=== PATIENT | female | born 1950 | race Caucasian/White ===

== ENCOUNTER 2017-05-23 17:58 | Emergency (ER) | payer MEDICARE, OTHER ==
[2017-05-23 18:32] LABS: ADD MAN DIFF? NO
[2017-05-23 18:36] LABS: BASO # 0.1 x10^3/uL (0.0-0.2); BASO % 1 % (0-3); EOS % 4 % (0-3); HEMATOCRIT 43.2 % (36.0-47.0); HEMOGLOBIN 14.1 g/dL (12.0-15.5); LYMPH # 2.4 x10^3/uL (1.0-4.8); LYMPH % 43 % (24-48); MEAN CORPUSCULAR HEMOGLOBIN 33 pg (25-35); MEAN CORPUSCULAR HGB CONC 33 g/dL (31-37); MEAN CORPUSCULAR VOLUME 100 fL (79-100); MONO % 9 % (0-9); NEUT % 44 % (31-73); PLATELET COUNT 218 x10^3/uL (140-400); RED BLOOD COUNT 4.32 x10^6/uL (3.50-5.40); RED CELL DISTRIBUTION WIDTH 13.7 % (11.5-14.5); WHITE BLOOD COUNT 5.7 x10^3/uL (4.0-11.0)
[2017-05-23 18:38] LABS: BILIRUBIN,URINE NEGATIVE (NEG); GLUCOSE,URINE NEGATIVE (NEG); NITRITE,URINE NEGATIVE (NEG); PROTEIN,URINE NEGATIVE (NEG-TRACE); UROBILINOGEN,URINE 0.2 mg/dL (0.2 mg/dL)
[2017-05-23 18:45] LABS: ANION GAP 10 (6-14); BLOOD UREA NITROGEN 13 mg/dL (7-20); CALCIUM 8.6 mg/dL (8.5-10.1); CARBON DIOXIDE 27 mmol/L (21-32); CHLORIDE 104 mmol/L (98-107); CREATININE 0.9 mg/dL (0.6-1.0); GFR 62.5; GLUCOSE 104 mg/dL (70-99); POTASSIUM 3.4 mmol/L (3.5-5.1); SODIUM 141 mmol/L (136-145)
[2017-05-23 18:48] LABS: BACTERIA,URINE 0 /HPF (0-FEW); RBC,URINE >40 /HPF (0-2); SQUAMOUS EPITHELIAL CELL,UR MOD /LPF
[2017-05-23 18:51] LABS: ALBUMIN 3.8 g/dL (3.4-5.0); ALK PHOS 120 U/L (46-116); ALT (SGPT) 33 U/L (14-59); AST (SGOT) 25 U/L (15-37); DIRECT BILIRUBIN 0.1 mg/dL (0.0-0.2); TOTAL BILIRUBIN 0.3 mg/dL (0.2-1.0)
[2017-05-23 18:53] LABS: LACTIC ACID 1.2 mmol/L (0.4-2.0); TROPONINI < 0.017 ng/mL (0.000-0.055)
[2017-05-23] MEDS: ONDANSETRON PF 4 MG/2 ML VIAL. IV (19:16)
[2017-05-23] MEDS: HYDROmorphone 2 MG/ML VIAL IV/SQ (19:16)
[2017-05-23] MEDS: IV NORMAL SALINE 500ML BAG 500 ML IV (19:23)
== END 2017-05-23 19:50 | disposition home or self-care (01) ==
LOC: ER 17:58
DX: N20.0 Calculus of kidney (principal); E78.00 Pure hypercholesterolemia, unspecified; I10 Essential (primary) hypertension; K21.9 Gastro-esophageal reflux disease without esophagitis; M79.7 Fibromyalgia; G43.909 Migraine, unspecified, not intractable, without status migrainosus; Z98.890 Other specified postprocedural states; Z87.19 Personal history of other diseases of the digestive system; Z90.49 Acquired absence of other specified parts of digestive tract
CPT/HCPCS: 36415; 74176; 80048; 80076; 81001; 83605; 83690; 84484; 85025; 87086; 93005; 96374; 96375; 99285-25; J1170; J2405; J7040

== ENCOUNTER 2021-09-08 20:02 | Inpatient (IN) | payer BC, MEDICARE ==
[~2021-09-08] VITALS: Ht 152.4 cm; Wt 48.0 kg
[~2021-09-08 20:02] MED LIST: HYDR-2761 PO; ONDA4TAB10 SL
[2021-09-08 21:14] LABS: BASO # 0.1 x10^3/uL (0.0-0.2); BASO % 1 % (0-3); EOS # 0.1 x10^3/uL (0.0-0.7); EOS % 2 % (0-3); HEMOGLOBIN 13.3 g/dL (12.0-15.5); LYMPH # 2.2 x10^3/uL (1.0-4.8); LYMPH % 36 % (24-48); MEAN CORPUSCULAR HEMOGLOBIN 33 pg (25-35); MEAN CORPUSCULAR HGB CONC 34 g/dL (31-37); MEAN CORPUSCULAR VOLUME 96 fL (79-100); MONO # 0.5 x10^3/uL (0.0-1.1); MONO % 8 % (0-9); NEUT # 3.3 x10^3/uL (1.8-7.7); NEUT % 53 % (31-73); PLATELET COUNT 192 x10^3/uL (140-400); RED BLOOD COUNT 4.07 x10^6/uL (3.50-5.40); RED CELL DISTRIBUTION WIDTH 13.6 % (11.5-14.5); WHITE BLOOD COUNT 6.2 x10^3/uL (4.0-11.0)
[2021-09-08] MEDS ORDERED: DEXAMETHASONE SOD PHOS 20 MG/5 ML VIAL. IV ONE (21:15)
[2021-09-08] MEDS ORDERED: hydrALAZINE 20 MG/ML VIAL. IVP ONE (21:15)
[2021-09-08] MEDS ORDERED: IOHEXOL 300 MG/ML 100ML VIAL. IV ONE (21:15)
[2021-09-08 21:24] LABS: CALCIUM 9.2 mg/dL (8.5-10.1); CREATININE 0.9 mg/dL (0.6-1.0); GFR 61.7; POTASSIUM 3.4 mmol/L (3.5-5.1); PROTHROMBIN TIME PATIENT 12.9 SEC (11.7-14.0)
[2021-09-08 21:30] LABS: ALBUMIN 3.8 g/dL (3.4-5.0); ALBUMIN/GLOBULIN RATIO 1.1 (1.0-1.7); MAGNESIUM 2.4 mg/dL (1.8-2.4); TOTAL BILIRUBIN 0.3 mg/dL (0.2-1.0); TOTAL PROTEIN 7.2 g/dL (6.4-8.2)
[2021-09-08] MEDS ORDERED: CONTRAST GIVEN. MC PRN (21:30)
[2021-09-08 21:53] LABS: BACTERIA,URINE 0 /HPF (0-FEW); BARBITURATES POS (NEG); BENZODIAZEPINES NEG (NEG); CANNABINOIDS NEG (NEG); COCAINE NEG (NEG); METHADONE NEG (NEG); OPIATES NEG (NEG); PHENCYCLIDINE NEG (NEG); RBC,URINE 0 /HPF (0-2)
[2021-09-08 21:54] LABS: AMPHETAMINE/METHAMPHETAMINE NEG (NEG); WBC,URINE OCC /HPF (0-4)
--- NOTE | 2021-09-08 22:23 | RAD ---
PQRS Compliance Statement: One or more of the following individualized dose reduction techniques were utilized for this examinat ion: 1. Automated exposure control 2. Adjustment of the mA and/or kV according to patient size 3. Use of iterative reconstruction technique CT HEAD WITHOUT CONTRAST History: Reason: headache / Spl. Instructions: / History: Comparison: None. Technique: Axial images are obtained of the head from the skull base through the vertex without IV co ntrast. Findings: No mass-effect, midline shift, extra-axial fluid collection, hemorrhage, or obvious acute infarction is identified. Basilar cisterns are patent. The ventricles and sulci are prominent, consistent with generalized cerebral atrophy. There is perive ntricular white matter hypoattenuation. This is a nonspecific finding but is commonly due to chronic small vessel ischemic disease. Bone windows demonstrate no acute calvarial abnormality. The left sphenoid sinus is completely opacif ied. The other visualized paranasal sinuses are clear. Mastoid air cells are well aerated. IMPRESSION: 1. No acute intracranial abnormality. 2. Generalized cerebral atrophy and periventricular white matter changes probably due to chronic sma ll vessel ischemic disease. Electronically signed by: Eric Hook MD (09/08/2021 10:21 PM) [facility]
--- NOTE | 2021-09-08 22:43 | RAD ---
PQRS Compliance Statement: One or more of the following individualized dose reduction techniques were utilized for this examinat ion: 1. Automated exposure control 2. Adjustment of the mA and/or kV according to patient size 3. Use of iterative reconstruction technique CTA HEAD AND NECK W/WO CONTRAST Clinical Indication: Reason: headache; Comparison: CT head without contrast, earlier same day. Technique: Helical CT imaging from inferior to the aortic arch to the skull vertex is performed after 75 cc of Omnipaque [address] angiogram protocol. 3-D MIP reconstructions of the cervi emanuel carotid arteries and [place] of [place] are performed. PQRS Compliance Statement - Stenosis calculations for CT, MR and conventional angiography are based u rubio measurement of the distal ICA diameter in accordance with the NASCET methodology. Stenosis calcu lations for carotid ultrasound studies are derived from validated velocity criteria which are known t o correlate with the NASCET methodology. Findings: Aortic arch branches are patent. Common carotid arteries are patent. The carotid bifurcations are pat ent. The cervical internal carotid arteries are patent. No evidence of dissection. The cervical verte bral arteries are patent. The left vertebral artery is dominant. The posterior circulation is intact. There is persistent origin of the left posterior cerebral artery. The distal internal carotid arteries are patent. The left A1 segment is very hypoplastic or aplastic. There is patent anterior co mmunicating artery. There is normal caliber more distal anterior cerebral arteries. The middle cerebr al arteries are patent. No intracranial aneurysm or significant stenosis is identified. There is no contrast opacification of the right transverse and sigmoid sinus. No abnormal enhancement in the brain parenchyma. The thyroid is symmetric. No cervical adenopathy is seen. There are a few g roundglass nodules in the left upper lobe that may be infectious/inflammatory. There is mild grade 1 anterolisthesis of C4 on C5 and C5 on C6 and C7 on T1. There are mild degenerative changes of the cer vical spine. IMPRESSION: 1. There is no large vessel arterial occlusion. 2. There is no significant stenosis of the cervical carotid or vertebral arteries. 3. There is no contrast opacification of right transverse and sigmoid sinus. Cannot exclude sinus th rombosis. Alternatively finding may be due to hypoplasia and contrast phase. Consider CT venogram for further evaluation. 4. There are a few groundglass nodules in the left upper lobe that are probably infectious/inflammat ory. Electronically signed by: Eric Hook MD (09/08/2021 10:41 PM) [facility]
[2021-09-09] MEDS ORDERED: MORPHINE SULFATE 4 MG/ML INJ. IVP ONE
[2021-09-09] MEDS ORDERED: ONDANSETRON PF 4 MG/2 ML VIAL. ONE (00:25)
[2021-09-09] MEDS ORDERED: ONDANSETRON PF 4 MG/2 ML VIAL. IVP ONE (00:30)
--- NOTE | 2021-09-09 00:58 | PHYS DOC ---
Past Medical History Past Medical History: Diverticulitis, Fibromyalgia, GERD, High Cholesterol, Hypertension, Migraines Additional Past Medical Histor: TMJ Past Surgical History: Hysterectomy Additional Past Surgical Histo: L SHOULDER- BONE SPUR REMOVED, SKIN CANCER REMOVED, WRIST Smoking Status: Never Smoker Alcohol Use: None Drug Use: None General Adult EDM: Chief Complaint: HEADACHE HPI: HPI: Patient is a 71 year old female with a history of migraine headaches, hypertension, fibromyalgia, high cholesterol, TMJ, presenting to the ED today complaining of 10 out of 10 generalized headache, chest pain, jaw pain, teeth pain, roof of the mouth pain, symptoms have been going on for 1 week. Patient states symptoms got worse today. Patient denies any nausea, vomiting. She states this does not feel like her normal migraines or TMJ. She states she is currently on sumatriptan, Soma, butalbital with no relief. Denies any vision changes, denies any weakness. Denies anything exacerbating or relieving the pain. She states the headache began gradually and has gotten worse. Denies any thunderclap headache. Review of Systems: Review of Systems: Constitutional: Denies fever or chills. [] Eyes: Denies change in visual acuity. [] HENT: Reports jaw pain, face pain, teeth pain, roof of the mouth pain, denies nasal congestion or sore throat. [] Respiratory: Denies cough or shortness of breath. [] Cardiovascular: Denies chest pain or edema. [] GI: Denies abdominal pain, nausea, vomiting, bloody stools or diarrhea. [] : Denies dysuria. [] Musculoskeletal: Denies back pain or joint pain. [] Integument: Denies rash. [] Neurologic: Reports a headache, denies focal weakness or sensory changes. [] Psychiatric: Denies depression or anxiety. [] Heart Score: C/O Chest Pain: N/A Risk Factors: Risk Factors: DM, Current or recent (<one month) smoker, HTN, HLP, family history of CAD, obesity. Risk Scores: Score 0 - 3: 2.5% MACE over next 6 weeks - Discharge Home Score 4 - 6: 20.3% MACE over next 6 weeks - Admit for Clinical Observation Score 7 - 10: 72.7% MACE over next 6 weeks - Early Invasive Strategies Current Medications: Current Medications Medications (Trade) Dose Ordered Sig/Keila Start Time Stop Time Status Last Admin Dose Admin Dexamethasone Sodium Phosphate (Decadron) 10 mg 1X ONCE 09/08/21 21:15 09/08/21 21:16 DC 09/08/21 21:41 10 MG Enoxaparin Sodium (Lovenox 60mg Syringe) 60 mg ONCE ONCE 09/09/21 00:15 09/09/21 00:16 DC 09/09/21 00:28 60 MG Enoxaparin Sodium (Lovenox Per Pharmacy Treatment Dosing) 1 each 1X STAT 09/08/21 23:58 09/09/21 00:07 DC Hydralazine HCl (Apresoline Inj) 10 mg 1X ONCE 09/08/21 21:15 09/08/21 21:16 DC 09/08/21 21:44 10 MG Info (CONTRAST GIVEN -- Rx MONITORING) 1 each PRN DAILY PRN 09/08/21 21:30 09/10/21 21:29 Iohexol (Omnipaque 300 Mg/ml) 75 ml 1X ONCE 09/08/21 21:15 09/08/21 21:18 DC 09/08/21 22:15 75 ML Morphine Sulfate (Morphine Sulfate) 4 mg 1X ONCE 09/09/21 00:00 09/09/21 00:04 DC 09/09/21 00:18 4 MG Ondansetron HCl (Zofran) 4 mg STK-MED ONCE 09/09/21 00:25 09/09/21 00:25 DC Allergies: Allergies: Allergies Coded Allergies Type Severity Reaction Last Updated Verified No Known Drug Allergies 05/23/17 No Physical Exam: PE: Constitutional: Well developed, well nourished, no acute distress, non-toxic appearance. [] HENT: Normocephalic, atraumatic, bilateral external ears normal, oropharynx moist, no oral exudates, nose normal. [] Eyes: No papilledema noted on physical exam PERRLA, EOMI, conjunctiva normal, no discharge. [] Neck: Normal range of motion, no tenderness, supple, no stridor. [] Cardiovascular:Heart rate regular rhythm, no murmur [] Lungs & Thorax: Bilateral breath sounds clear to auscultation [] Abdomen: Bowel sounds normal, soft, no tenderness, no masses, no pulsatile masses. [] Skin: Warm, dry, no erythema, no rash. [] Back: No tenderness, no CVA tenderness. [] Extremities: No tenderness, no cyanosis, no clubbing, ROM intact, no edema. [] Neurologic: Alert and oriented X 3, normal motor function, normal sensory function, no focal deficits noted. Cranial nerves II through XII intact Psychologic: Affect normal, judgement normal, mood normal. [] Current Patient Data: Labs: Laboratory Tests Test 09/08/21 21:05 09/08/21 21:38 White Blood Count 6.2 x10^3/uL (4.0-11.0) Red Blood Count 4.07 x10^6/uL (3.50-5.40) Hemoglobin 13.3 g/dL (12.0-15.5) Hematocrit 39.0 % (36.0-47.0) Mean Corpuscular Volume 96 fL (79-100) Mean Corpuscular Hemoglobin 33 pg (25-35) Mean Corpuscular Hemoglobin Concent 34 g/dL (31-37) Red Cell Distribution Width 13.6 % (11.5-14.5) Platelet Count 192 x10^3/uL (140-400) Neutrophils (%) (Auto) 53 % (31-73) Lymphocytes (%) (Auto) 36 % (24-48) Monocytes (%) (Auto) 8 % (0-9) Eosinophils (%) (Auto) 2 % (0-3) Basophils (%) (Auto) 1 % (0-3) Neutrophils # (Auto) 3.3 x10^3/uL (1.8-7.7) Lymphocytes # (Auto) 2.2 x10^3/uL (1.0-4.8) Monocytes # (Auto) 0.5 x10^3/uL (0.0-1.1) Eosinophils # (Auto) 0.1 x10^3/uL (0.0-0.7) Basophils # (Auto) 0.1 x10^3/uL (0.0-0.2) Erythrocyte Sedimentation Rate 21 (0-25) Prothrombin Time 12.9 SEC (11.7-14.0) Prothrombin Time INR 1.0 (0.8-1.1) Activated Partial Thromboplast Time 32 SEC (24-38) Sodium Level 142 mmol/L (136-145) Potassium Level 3.4 mmol/L (3.5-5.1) L Chloride Level 107 mmol/L (98-107) Carbon Dioxide Level 25 mmol/L (21-32) Anion Gap 10 (6-14) Blood Urea Nitrogen 14 mg/dL (7-20) Creatinine 0.9 mg/dL (0.6-1.0) Estimated GFR (Cockcroft-Gault) 61.7 BUN/Creatinine Ratio 16 (6-20) Glucose Level 97 mg/dL (70-99) Calcium Level 9.2 mg/dL (8.5-10.1) Magnesium Level 2.4 mg/dL (1.8-2.4) Total Bilirubin 0.3 mg/dL (0.2-1.0) Aspartate Amino Transferase (AST) 21 U/L (15-37) Alanine Aminotransferase (ALT) 26 U/L (14-59) Alkaline Phosphatase 145 U/L (46-116) H Troponin I High Sensitivity 7 ng/L (4-50) RZ-Pjp-Q-Type Natriuretic Peptide 37 pg/mL (0-124) Total Protein 7.2 g/dL (6.4-8.2) Albumin 3.8 g/dL (3.4-5.0) Albumin/Globulin Ratio 1.1 (1.0-1.7) Urine Collection Type Unknown Urine Color (Auto) Colorless Urine Turbidity Clear Urine pH (Auto) 6.5 (<5.0-8.0) Urine Specific [place] 1.008 (1.000-1.030) Urine Protein (Auto) Negative mg/dL (Negative) Urine Glucose (Auto)(UA) Negative mg/dL (Negative) Urine Ketones (Auto) Negative mg/dL (Negative) Urine Blood (Auto) Negative (Negative) Urine Nitrite Negative (Negative) Urine Bilirubin (Auto) Negative (Negative) Urine Urobilinogen (Auto) Normal mg/dL (Normal) Urine Leukocyte Esterase (Auto) Negative (Negative) Urine RBC 0 /HPF (0-2) Urine WBC Occ /HPF (0-4) Urine Squamous Epithelial Cells Occ /LPF Urine Bacteria 0 /HPF (0-FEW) Urine Opiates Screen Neg (NEG) Urine Methadone Screen Neg (NEG) Urine Barbiturates Pos (NEG) Urine Phencyclidine Screen Neg (NEG) Urine Amphetamine/Methamphetamine Neg (NEG) Urine Benzodiazepines Screen Neg (NEG) Urine Cocaine Screen Neg (NEG) Urine Cannabinoids Screen Neg (NEG) Urine Ethyl Alcohol Neg (NEG) Laboratory Tests 09/08/21 21:05 Laboratory Tests 09/08/21 21:05 Vital Signs: Vital Signs Date Time Temp Pulse Resp B/P (MAP) Pulse Ox O2 Delivery O2 Flow Rate FiO2 09/09/21 00:18 18 97 Room Air 09/08/21 23:47 106 09/08/21 21:44 173/99 09/08/21 20:08 98.1 98.1 EKG: EKG: [] Radiology/Procedures: Radiology/Procedures: []PROCEDURE: CT ANGIOGRAPHY HEAD AND NECK PQRS Compliance Statement: One or more of the following individualized dose reduction techniques were utilized for this examination: 1. Automated exposure control 2. Adjustment of the mA and/or kV according to patient size 3. Use of iterative reconstruction technique CTA HEAD AND NECK W/WO CONTRAST Clinical Indication: Reason: headache; Comparison: CT head without contrast, earlier same day. Technique: Helical CT imaging from inferior to the aortic arch to the skull vertex is performed after 75 cc of Omnipaque [address] angiogram protocol. 3-D MIP reconstructions of the cervical carotid arteries and [place] of [place] are performed. PQRS Compliance Statement - Stenosis calculations for CT, MR and conventional angiography are based upon measurement of the distal ICA diameter in accordance with the NASCET methodology. Stenosis calculations for carotid ultrasound studies are derived from validated velocity criteria which are known to correlate with the NASCET methodology. Findings: Aortic arch branches are patent. Common carotid arteries are patent. The carotid bifurcations are patent. The cervical internal carotid arteries are patent. No evidence of dissection. The cervical vertebral arteries are patent. The left vertebral artery is dominant. The posterior circulation is intact. There is persistent origin of the left posterior cerebral artery. The distal internal carotid arteries are patent. The left A1 segment is very hypoplastic or aplastic. There is patent anterior communicating artery. There is normal caliber more distal anterior cerebral arteries. The middle cerebral arteries are patent. No intracranial aneurysm or significant stenosis is identified. There is no contrast opacification of the right transverse and sigmoid sinus. No abnormal enhancement in the brain parenchyma. The thyroid is symmetric. No cervical adenopathy is seen. There are a few groundglass nodules in the left upper lobe that may be infectious/inflammatory. There is mild grade 1 anterolisthesis of C4 on C5 and C5 on C6 and C7 on T1. There are mild d egenerative changes of the cervical spine. IMPRESSION: 1. There is no large vessel arterial occlusion. 2. There is no significant stenosis of the cervical carotid or vertebral arteries. 3. There is no contrast opacification of right transverse and sigmoid sinus. Cannot exclude sinus thrombosis. Alternatively finding may be due to hypoplasia and contrast phase. Consider CT venogram for further evaluation. 4. There are a few groundglass nodules in the left upper lobe that are probably infectious/inflammatory. Electronically signed by: Eric Hook MD (09/08/2021 10:41 PM) [facility] DICTATED and SIGNED BY: ERIC HOOK MD DATE: 09/08/212220 PROCEDURE: CT HEAD WO CONTRAST PQRS Compliance Statement: One or more of the following individualized dose reduction techniques were utilized for this examination: 1. Automated exposure control 2. Adjustment of the mA and/or kV according to patient size 3. Use of iterative reconstruction technique CT HEAD WITHOUT CONTRAST History: Reason: headache / Spl. Instructions: / History: Comparison: None. Technique: Axial images are obtained of the head from the skull base through the vertex without IV contrast. Findings: No mass-effect, midline shift, extra-axial fluid collection, hemorrhage, or obvious acute infarction is identified. Basilar cisterns are patent. The ventricles and sulci are prominent, consistent with generalized cerebral atrophy. There is periventricular white matter hypoattenuation. This is a nonspecific finding but is commonly due to chronic small vessel ischemic disease. Bone windows demonstrate no acute calvarial abnormality. The left sphenoid sinus is completely opacified. The other visualized paranasal sinuses are clear. Mastoid air cells are well aerated. IMPRESSION: 1. No acute intracranial abnormality. 2. Generalized cerebral atrophy and periventricular white matter changes probably due to chronic small vessel ischemic disease. Electronically signed by: Eric Hook MD (09/08/2021 10:21 PM) [facility] DICTATED and SIGNED BY: ERIC HOOK MD DATE: 09/08/212215 Course & Med Decision Making: Course & Med Decision Making Pertinent Labs and Imaging studies reviewed. (See chart for details) This a 71-year-old female patient presenting to the ED today complaining of 10 out of 10 General headache, chest pain, jaw pain, teeth pain, roof of the mouth pain, symptoms of been going on for 1 week and got worse today. Vitals on arrival to the ED temperature 98.1, heart rate 81, O2 sats 99% on room air, blood pressure 213/88. CBC CMP with no acute findings, cardiac work-up is negative. CT of head, CT head neck angio, no large vessel arterial occlusion. No significant stenosis of the cervical carotid or vertebral arteries. No contrast opacification of right transverse and sigmoid sinus. Cannot exclude sinus thrombosis. Alternatively finding may be due to hypoplasia and contrast phase. Consider CT venogram for further evaluation. There are a few groundglass nodules in the left upper lobe that are probably infectious/inflammatory. Spoke to Dr. Pierre. He had recommended patient to be discharged to home and follow-up with PCP for outpatient CT venogram. He also requested sed rate which was negative Unfortunately this patient's headache is not well controlled. She keeps asking for pain medicine and every time she gets a dose she states she wants something stronger. Patient herself is not comfortable going home, she states she would rather stay in the hospital and be safe to ensure this is not a true thrombus. Patient was admitted MRI/ MRV and rule out sinus thrombus can be done in AM Spoke to Dr. Quarles who accepted patient for admission. Case was discussed with Dr. Mancini who helped direct patient's care. He also recommended Lovenox which was given to patient Dragon Disclaimer: Rajinder Disclaimer: This electronic medical record was generated, in whole or in part, using a voice recognition dictation system. Departure Departure Impression: Primary Impression: Accelerated hypertension Additional Impressions: Intractable headache Qualified Codes: R51.9 - Headache, unspecified Dural sinus thrombosis Disposition: ADMITTED INPATIENT Condition: STABLE Referrals: GAGE QUARLES MD (PCP) GERA SALGADO [employer] Sep 09, 2021 00:58
[2021-09-09] MEDS ORDERED: ONDANSETRON PF 4 MG/2 ML VIAL. IVP PRN (01:00)
[2021-09-09] MEDS ORDERED: hydrALAZINE 20 MG/ML VIAL. IVP PRN (01:00)
[2021-09-09] MEDS ORDERED: IOHEXOL 300 MG/ML 100ML VIAL. ONE (02:06)
[2021-09-09] MEDS: MORPHINE SULFATE 4 MG/ML INJ. IVP PRN ×3 (02:41→16:00)
[2021-09-09 03:16] VITALS: BP 178/80
[2021-09-09] MEDS ORDERED: SUMA100T4 PO (03:22)
[2021-09-09] MEDS ORDERED: SUVO20TA PO (03:22)
[2021-09-09] MEDS ORDERED: BUTA1TAB23 PO (03:22)
[2021-09-09] MEDS ORDERED: TOPI100T8 PO (03:22)
[2021-09-09] MEDS ORDERED: CARI350T14 PO (03:22)
[2021-09-09] MEDS ORDERED: AMLO-186 PO (03:22)
[2021-09-09] MEDS ORDERED: AMIT50TA PO (03:22)
[2021-09-09] MEDS ORDERED: SIMV40TA18 PO (03:22)
[2021-09-09] MEDS ORDERED: FAMO20TA5 PO (03:22)
[2021-09-09] MEDS ORDERED: KETOROLAC 30 MG/ML VIAL. IVP ONE (06:15)
[2021-09-09 07:00] VITALS: BP 140/75
--- NOTE | 2021-09-09 07:34 | EKG ---
[facility] [address] [place] [address] Test Date: 2021-09-08 Test Time: 21:25:06 Pat Name: AMANDA PEÑA Department: Room: 646 Gender: F Export Sales Manager: : 1950 Requested By: GERA SALGADO Order Number: [id number] Reading MD: Chepe Benedict Measurements Intervals [place] Rate: 80 P: 50 TN: 158 QRS: -14 QRSD: 82 T: 21 QT: 394 QTc: 458 Interpretive Statements SINUS RHYTHM LEFT ATRIAL ABNORMALITY LEFTWARD AXIS Electronically Signed On 09-09-2021 13:14:54 CDT by Chepe Benedict
[2021-09-09] MEDS ORDERED: BUTALB/APAP/CAFEIN 50/325/40MG TABLET. PO PRN (08:15)
--- NOTE | 2021-09-09 08:19 | PREOP HP ---
DATE OF SERVICE: 09/09/2021 CHIEF COMPLAINT AND HISTORY OF PRESENT ILLNESS: This 71-year-old female well known to me from followup in the office, presented with severe headache. She has had it for the last couple of days. It involves her entire hand involving face. She has a long history of migraines and this is definitely different than that. She did have elevated blood pressures in the Emergency Room, likely secondary to the headache as opposed to the other way around. Had imaging including CT head that was negative and head and neck CTA showing a question of sinus thrombosis of the right transverse and sigmoid sinus on imaging. Alternatively, the finding was felt possibly due to hypoplasia and contrast phase and further imaging suggested. I would favor there not being a clot. She currently has received morphine overnight with minimal relief of pain and a dose of ketorolac this morning with the same relief is morphine. She still is miserable. Her is present at the bedside. PAST MEDICAL HISTORY: Remarkable for diverticulitis, hyperlipidemia, hypertension, migraines, skin cancers. PAST SURGICAL HISTORY: Remarkable for a left shoulder surgery as well as skin cancer removed. MEDICATIONS: Brought with the patient, listed on the computer, have been addressed. ALLERGIES: She has no known drug allergies. SOCIAL HISTORY: She is a lifetime nonsmoker, nondrinker, does not use drugs. , lives at home with her . FAMILY HISTORY: Noncontributory. REVIEW OF SYSTEMS: Remarkable again for the headache involving her entire head including her lower teeth, which is a very strange headache. She denies any nausea or vomiting with this. PHYSICAL EXAMINATION: GENERAL: She is well-developed, well-nourished female who appears uncomfortable. VITAL SIGNS: Stable. Blood pressure is still somewhat elevated this morning at 178/80, but not enough, I believe, to be causing the headaches. She is afebrile. HEAD, EYES, EARS, NOSE AND THROAT: Unremarkable. NECK: Supple, without adenopathy or thyromegaly. CHEST: Clear to auscultation and percussion. HEART: Regular rate and rhythm without S3, S4 or murmur. ABDOMEN: Soft, nontender, without hepatosplenomegaly or mass. EXTREMITIES: Without cyanosis, clubbing or edema. NEUROLOGIC: Nonfocal. DIAGNOSTIC DATA: Initial lab includes a normal sed rate, normal CBC, normal CMP, troponins are negative. INR is within normal limits. Urine is within normal limits. Imaging includes again the CT head and head and neck CTA. ASSESSMENT: 1. Severe headache. 2. Other problems as listed above. PLAN: Continue present care. We will ask Neurology for help as I really am completely unclear as to the etiology of this headache. ALONSO DR: Tessa TID: [id number]
[2021-09-09] MEDS ORDERED: CYCLOBENZAPRINE 10 MG TABLET. PO PRN (08:30)
[2021-09-09] MEDS: TOPIRAMATE 100 MG TABLET. PO SCH ×2 (09:00→14:00)
[2021-09-09] MEDS ORDERED: FAMOTIDINE 20 MG TABLET. PO SCH (09:00)
--- NOTE | 2021-09-09 09:28 | PDOC2 ---
NEUROLOGY CONSULT Date of Service DOS: DATE: 09/09/21 TIME: 09:17 Reason for Consult Reason for Consult: Headaches Referring Physician Referring Physician: Dr. Quarles Source Source: Caregiver (), Chart review, Patient History of Present Illness History of Present Illness The patient is a 71-year-old right-handed female with a long history of migraine headaches. She has been on Topamax at high doses since 2003. She says that she has not had a migraine in several years but used to have typical throbbing pain with photo phonophobia and nausea. For the past several weeks she has had achy pain in the jaws face and neck. She has known temporomandibular joint dysfunction. She has chronic aches and pains in the joints and muscles throughout her body for which she takes Fiorinal, and has been doing so for several years. She says that she has discussed fibromyalgia with Dr. Quarles. Yesterday she had a severe frontal headache and came to the emergency departme . CT head was negative. CT angiogram showed lack of contrast opacification of right transverse and sigmoid sinus. I discussed the case with RILEY Wagner last night and recommended sedimentation rate and discharge for outpatient MR venogram. The patient was instead admitted. She received morphine and ketorolac. The morphine had not been working but this morning she says her he adache is now 0/10. Past Medical History Cardiovascular: HTN, Hyperlipidemia CENTRAL NERVOUS SYSTEM: Migraine GI: GERD Rheumatologic: Fibromyalgia Dermatology: Other (Skin cancer) Past Surgical History Past Surgical History: Hysterectomy, Other (Right shoulder, left rotator cuff, right knee) Family History Family History: No pertinent hx Social History Social History , no tobacco or alcohol Current Medications Current Medications Current Medications Dexamethasone Sodium Phosphate (Decadron) 10 mg 1X ONCE IV Last administered on 09/08/21at 21:41; Start 09/08/21 at 21:15; Stop 09/08/21 at 21:16; Status DC Hydralazine HCl (Apresoline Inj) 10 mg 1X ONCE IVP Last administered on 09/08/21at 21:44; Start 09/08/21 at 21:15; Stop 09/08/21 at 21:16; Status DC Iohexol (Omnipaque 300 Mg/ml) 75 ml 1X ONCE IV Last administered on 09/08/21at 22:15; Start 09/08/21 at 21:15; Stop 09/08/21 at 21:18; Status DC Info (CONTRAST GIVEN -- Rx MONITORING) 1 each PRN DAILY PRN MC SEE COMMENTS; Start 09/08/21 at 21:30; Stop 09/10/21 at 21:29 Morphine Sulfate (Morphine Sulfate) 4 mg 1X ONCE IVP Last administered on 09/09/21at 00:18; Start 09/09/21 at 00:00; Stop 09/09/21 at 00:04; Status DC Enoxaparin Sodium (Lovenox Per Pharmacy Treatment Dosing) 1 each 1X STAT MC ; Start 09/08/21 at 23:58; Stop 09/09/21 at 00:07; Status DC Enoxaparin Sodium (Lovenox 60mg Syringe) 60 mg ONCE ONCE SQ Last administered on 09/09/21at 00:28; Start 09/09/21 at 00:15; Stop 09/09/21 at 00:16; Status DC Ondansetron HCl (Zofran) 4 mg 1X ONCE IVP Last administered on 09/09/21at 00:27; Start 09/09/21 at 00:30; Stop 09/09/21 at 00:31; Status DC Ondansetron HCl (Zofran) 4 mg STK-MED ONCE .ROUTE ; Start 09/09/21 at 00:25; Stop 09/09/21 at 00:25; Status DC Ondansetron HCl (Zofran) 4 mg PRN Q8HRS PRN IVP NAUSEA/VOMITING Last administered on 09/09/21at 02:38; Start 09/09/21 at 01:00; Stop 09/10/21 at 00:59 Morphine Sulfate (Morphine Sulfate) 4 mg PRN Q2HR PRN IVP PAIN Last administered on 09/09/21at 07:27; Start 09/09/21 at 01:00; Stop 09/10/21 at 00:59 Hydralazine HCl (Apresoline Inj) 10 mg PRN Q4HRS PRN IVP HYPERTENSION; Start 09/09/21 at 01:00 Iohexol (Omnipaque 300 Mg/ml) 100 ml STK-MED ONCE .ROUTE ; Start 09/09/21 at 02:06; Stop 09/09/21 at 02:06; Status DC Ketorolac Tromethamine (Toradol 30mg Vial) 30 mg 1X ONCE IVP Last administered on 09/09/21at 06:42; Start 09/09/21 at 06:15; Stop 09/09/21 at 06:16; Status DC Amlodipine Besylate (Norvasc) 5 mg DAILY PO ; Start 09/09/21 at 09:00 Acetaminophen/ Butalbital/ Caffeine (Fioricet) 2 tab PRN Q6HRS PRN PO MIGRAINE HEADACHE; Start 09/09/21 at 08:15 Famotidine (Pepcid) 20 mg BID PO ; Start 09/09/21 at 09:00 Simvastatin (Zocor) 40 mg QHS PO ; Start 09/09/21 at 21:00 Sumatriptan Succinate (Imitrex) 100 mg PRN DAILY PRN PO MIGRAINE HEADACHE; Start 09/09/21 at 08:15 Topiramate (Topamax) 100 mg TID PO ; Start 09/09/21 at 09:00 Amitriptyline HCl (Elavil) 50 mg QHS PO ; Start 09/09/21 at 21:00 Cyclobenzaprine HCl (Flexeril) 10 mg PRN Q6HRS PRN PO MUSCLE SPASMS; Start 09/09/21 at 08:30 Non-Formulary Medication (Suvorexant (Belsomra)) 1 tab QHS PO ; Start 09/09/21 at 21:00; Status UNV Active Scripts Active Reported Amitriptyline Hcl 50 Mg Tablet 1 Tab PO QHS Amlodipine Besylate 5 Mg Tablet 1 Tab PO DAILY [id number] 50-325-40 (Butalb/Acetaminophen/Caffeine) 1 Each Tablet 2 Tab PO PRN Q6HRS PRN Carisoprodol 350 Mg Tablet 1 Tab PO QID PRN Belsomra (Suvorexant) 20 Mg Tablet 1 Tab PO QHS Sumatriptan Succinate 100 Mg Tablet 1 Tab PO UD Topiramate 100 Mg Tablet 100 Tab PO TID Simvastatin 40 Mg Tablet 1 Tab PO QHS Famotidine 20 Mg Tablet 1 Tab PO BID Allergies Allergies: Coded Allergies: No Known Drug Allergies (Unverified , 05/23/17) ROS Review of System Negative for fever, chills, weight loss, shortness of breath, chest pain, indigestion, hematochezia, melena, and dysuria. Full 14-point review of systems is negative. Physical Exam Physical Examination General: Well-developed, well-nourished white female in no acute distress HEENT: Normocephalic andatraumatic. Temporal arteriespulsatile and nontender.Fundoscopic exam unremarkable Neck: Supple without bruit, no meningismus Musculoskeletal: Stability:see neurologic. Gait exam:see neurologic. Tone:see neurologic.Strength:see neurologic. Neurological: Mental Status:intact, orientation, memory, attention span/concentration, language, fund of knowledge normal. Cranial Nerves:Pupils equal and reactive to light, extraocular movements areintact, visual [place] are full to confrontation. Facial sensation is normal. There is no facial asymmetry. Vestibulo-ocular reflex is intact. Palate elevates and tongue protrudes in midline. All other cranial related problems are negative except as mentioned before.Reflexes:2+ and symmetric with flexor plantar responses. Motor:5/5 st rength with normal tone and bulk. Coordination:Finger-nose finger and gyjf-he-ttzp testing are normal. Rapid alternating movements and fine finger movements are intact. Gait:Normal, including tandem. Sensory:Normal pinprick, vibration, light touch, proprioception. Vitals VITALS Vital Signs Date Time Temp Pulse Resp B/P (MAP) Pulse Ox O2 Delivery O2 Flow Rate FiO2 09/09/21 07:27 18 97 Room Air 09/09/21 07:00 97.2 104 140/75 (96) 97.2 Labs Labs Laboratory Tests Test 09/08/21 21:05 09/08/21 21:38 09/09/21 04:00 09/09/21 06:55 White Blood Count 6.2 x10^3/uL (4.0-11.0) Red Blood Count 4.07 x10^6/uL (3.50-5.40) Hemoglobin 13.3 g/dL (12.0-15.5) Hematocrit 39.0 % (36.0-47.0) Mean Corpuscular Volume 96 fL (79-100) Mean Corpuscular Hemoglobin 33 pg (25-35) Mean Corpuscular Hemoglobin Concent 34 g/dL (31-37) Red Cell Distribution Width 13.6 % (11.5-14.5) Platelet Count 192 x10^3/uL (140-400) Neutrophils (%) (Auto) 53 % (31-73) Lymphocytes (%) (Auto) 36 % (24-48) Monocytes (%) (Auto) 8 % (0-9) Eosinophils (%) (Auto) 2 % (0-3) Basophils (%) (Auto) 1 % (0-3) Neutrophils # (Auto) 3.3 x10^3/uL (1.8-7.7) Lymphocytes # (Auto) 2.2 x10^3/uL (1.0-4.8) Monocytes # (Auto) 0.5 x10^3/uL (0.0-1.1) Eosinophils # (Auto) 0.1 x10^3/uL (0.0-0.7) Basophils # (Auto) 0.1 x10^3/uL (0.0-0.2) Erythrocyte Sedimentation Rate 21 (0-25) Prothrombin Time 12.9 SEC (11.7-14.0) Prothromb Time International Ratio 1.0 (0.8-1.1) Activated Partial Thromboplast Time 32 SEC (24-38) Sodium Level 142 mmol/L (136-145) Potassium Level 3.4 mmol/L (3.5-5.1) Chloride Level 107 mmol/L (98-107) Carbon Dioxide Level 25 mmol/L (21-32) Anion Gap 10 (6-14) Blood Urea Nitrogen 14 mg/dL (7-20) Creatinine 0.9 mg/dL (0.6-1.0) Estimated GFR (Cockcroft-Gault) 61.7 BUN/Creatinine Ratio 16 (6-20) Glucose Level 97 mg/dL (70-99) Calcium Level 9.2 mg/dL (8.5-10.1) Magnesium Level 2.4 mg/dL (1.8-2.4) Total Bilirubin 0.3 mg/dL (0.2-1.0) Aspartate Amino Transf (AST/SGOT) 21 U/L (15-37) Alanine Aminotransferase (ALT/SGPT) 26 U/L (14-59) Alkaline Phosphatase 145 U/L (46-116) Troponin I High Sensitivity 7 ng/L (4-50) 7 ng/L (4-50) 8 ng/L (4-50) QK-Tor-I-Type Natriuretic Peptide 37 pg/mL (0-124) Total Protein 7.2 g/dL (6.4-8.2) Albumin 3.8 g/dL (3.4-5.0) Albumin/Globulin Ratio 1.1 (1.0-1.7) Urine Collection Type Unknown Urine Color (Auto) Colorless Urine Turbidity Clear Urine pH (Auto) 6.5 (<5.0-8.0) Urine Specific [place] 1.008 (1.000-1.030) Urine Protein (Auto) Negative mg/dL (Negative) Urine Glucose (Auto)(UA) Negative mg/dL (Negative) Urine Ketones (Auto) Negative mg/dL (Negative) Urine Blood (Auto) Negative (Negative) Urine Nitrite Negative (Negative) Urine Bilirubin (Auto) Negative (Negative) Urine Urobilinogen (Auto) Normal mg/dL (Normal) Urine Leukocyte Esterase (Auto) Negative (Negative) Urine RBC 0 /HPF (0-2) Urine WBC Occ /HPF (0-4) Urine Squamous Epithelial Cells Occ /LPF Urine Bacteria 0 /HPF (0-FEW) Urine Opiates Screen Neg (NEG) Urine Methadone Screen Neg (NEG) Urine Barbiturates Pos (NEG) Urine Phencyclidine Screen Neg (NEG) Urine Amphetamine/Methamphetamine Neg (NEG) Urine Benzodiazepines Screen Neg (NEG) Urine Cocaine Screen Neg (NEG) Urine Cannabinoids Screen Neg (NEG) Urine Ethyl Alcohol Neg (NEG) Laboratory Tests Test 09/08/21 21:05 09/08/21 21:38 09/09/21 04:00 09/09/21 06:55 White Blood Count 6.2 x10^3/uL (4.0-11.0) Red Blood Count 4.07 x10^6/uL (3.50-5.40) Hemoglobin 13.3 g/dL (12.0-15.5) Hematocrit 39.0 % (36.0-47.0) Mean Corpuscular Volume 96 fL (79-100) Mean Corpuscular Hemoglobin 33 pg (25-35) Mean Corpuscular Hemoglobin Concent 34 g/dL (31-37) Red Cell Distribution Width 13.6 % (11.5-14.5) Platelet Count 192 x10^3/uL (140-400) Neutrophils (%) (Auto) 53 % (31-73) Lymphocytes (%) (Auto) 36 % (24-48) Monocytes (%) (Auto) 8 % (0-9) Eosinophils (%) (Auto) 2 % (0-3) Basophils (%) (Auto) 1 % (0-3) Neutrophils # (Auto) 3.3 x10^3/uL (1.8-7.7) Lymphocytes # (Auto) 2.2 x10^3/uL (1.0-4.8) Monocytes # (Auto) 0.5 x10^3/uL (0.0-1.1) Eosinophils # (Auto) 0.1 x10^3/uL (0.0-0.7) Basophils # (Auto) 0.1 x10^3/uL (0.0-0.2) Erythrocyte Sedimentation Rate 21 (0-25) Prothrombin Time 12.9 SEC (11.7-14.0) Prothromb Time International Ratio 1.0 (0.8-1.1) Activated Partial Thromboplast Time 32 SEC (24-38) Sodium Level 142 mmol/L (136-145) Potassium Level 3.4 mmol/L (3.5-5.1) Chloride Level 107 mmol/L (98-107) Carbon Dioxide Level 25 mmol/L (21-32) Anion Gap 10 (6-14) Blood Urea Nitrogen 14 mg/dL (7-20) Creatinine 0.9 mg/dL (0.6-1.0) Estimated GFR (Cockcroft-Gault) 61.7 BUN/Creatinine Ratio 16 (6-20) Glucose Level 97 mg/dL (70-99) Calcium Level 9.2 mg/dL (8.5-10.1) Magnesium Level 2.4 mg/dL (1.8-2.4) Total Bilirubin 0.3 mg/dL (0.2-1.0) Aspartate Amino Transf (AST/SGOT) 21 U/L (15-37) Alanine Aminotransferase (ALT/SGPT) 26 U/L (14-59) Alkaline Phosphatase 145 U/L (46-116) Troponin I High Sensitivity 7 ng/L (4-50) 7 ng/L (4-50) 8 ng/L (4-50) WE-Kns-D-Type Natriuretic Peptide 37 pg/mL (0-124) Total Protein 7.2 g/dL (6.4-8.2) Albumin 3.8 g/dL (3.4-5.0) Albumin/Globulin Ratio 1.1 (1.0-1.7) Urine Collection Type Unknown Urine Color (Auto) Colorless Urine Turbidity Clear Urine pH (Auto) 6.5 (<5.0-8.0) Urine Specific [place] 1.008 (1.000-1.030) Urine Protein (Auto) Negative mg/dL (Negative) Urine Glucose (Auto)(UA) Negative mg/dL (Negative) Urine Ketones (Auto) Negative mg/dL (Negative) Urine Blood (Auto) Negative (Negative) Urine Nitrite Negative (Negative) Urine Bilirubin (Auto) Negative (Negative) Urine Urobilinogen (Auto) Normal mg/dL (Normal) Urine Leukocyte Esterase (Auto) Negative (Negative) Urine RBC 0 /HPF (0-2) Urine WBC Occ /HPF (0-4) Urine Squamous Epithelial Cells Occ /LPF Urine Bacteria 0 /HPF (0-FEW) Urine Opiates Screen Neg (NEG) Urine Methadone Screen Neg (NEG) Urine Barbiturates Pos (NEG) Urine Phencyclidine Screen Neg (NEG) Urine Amphetamine/Methamphetamine Neg (NEG) Urine Benzodiazepines Screen Neg (NEG) Urine Cocaine Screen Neg (NEG) Urine Cannabinoids Screen Neg (NEG) Urine Ethyl Alcohol Neg (NEG) Images Images CT HEAD WITHOUT CONTRAST History: Reason: headache / Spl. Instructions: / History: Comparison: None. Technique: Axial images are obtained of the head from the skull base through the vertex without IV contrast. Findings: No mass-effect, midline shift, extra-axial fluid collection, hemorrhage, or obvious acute infarction is identified. Basilar cisterns are patent. The ventricles and sulci are prominent, consistent with generalized cerebral atrophy. There is periventricular white matter hypoattenuation. This is a nonspecific finding but is commonly due to chronic small vessel ischemic disease. Bone windows demonstrate no acute calvarial abnormality. The left sphenoid sinus is completely opacified. The other visualized paranasal sinuses are clear. Mastoid air cells are well aerated. IMPRESSION: 1. No acute intracranial abnormality. 2. Generalized cerebral atrophy and periventricular white matter changes probably due to chronic small vessel ischemic disease. CTA HEAD AND NECK W/WO CONTRAST Clinical Indication: Reason: headache; Comparison: CT head without contrast, earlier same day. Technique: Helical CT imaging from inferior to the aortic arch to the skull ve rtex is performed after 75 cc of Omnipaque [address] angiogram protocol. 3-D MIP reconstructions of the cervical carotid arteries and [place] are performed. PQRS Compliance Statement - Stenosis calculations for CT, MR and conventional angiography are based upon measurement of the distal ICA diameter in accordance with the NASCET methodology. Stenosis calculations for carotid ultrasound studies are derived from validated velocity criteria which are known to correlate with the NASCET methodology. Findings: Aortic arch branches are patent. Common carotid arteries are patent. The carotid bifurcations are patent. The cervical internal carotid arteries are patent. No evidence of dissection. The cervical vertebral arteries are patent. The left vertebral artery is dominant. The posterior circulation is intact. There is persistent origin of the left posterior cerebral artery. The distal internal carotid arteries are patent. The left A1 segment is very hypoplastic or aplastic. There is patent anterior communicating artery. There is normal caliber more distal anterior cerebral arteries. The middle cerebral arteries are patent. No intracranial aneurysm or significant stenosis is identified. There is no contrast opacification of the right transverse and sigmoid sinus. No abnormal enhancement in the brain parenchyma. The thyroid is symmetric. No cervical adenopathy is seen. There are a few groundglass nodules in the left upper lobe that may be infectious/inflammatory. There is mild grade 1 anterolisthesis of C4 on C5 and C5 on C6 and C7 on T1. There are mild degenerative changes of the cervical spine. IMPRESSION: 1. There is no large vessel arterial occlusion. 2. There is no significant stenosis of the cervical carotid or vertebral arteri es. 3. There is no contrast opacification of right transverse and sigmoid sinus. Cannot exclude sinus thrombosis. Alternatively finding may be due to hypoplasia and contrast phase. Consider CT venogram for further evaluation. 4. There are a few groundglass nodules in the left upper lobe that are probably infectious/inflammatory. Assessment/Plan Assessment/Plan Impression: Long history of migraine headaches, current headache sounds more like tension headache, still this headache phenotype can arise out of a migraine diathesis. Also contributing is her temporomandibular joint dysfunction and fibromyalgia. Frequent use of the Fiorinal can cause rebound headache although she takes it for her whole body pain. 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 Recommendations: MRI of the brain with MR venogram I discussed starting an antidepressant with the patient but she is opposed to antidepressants, she says. However, I see that she is on amitriptyline still. One could consider switching to escitalopram or duloxetine Home with pain remains controlled and MRI studies are negative Follow-up with me as needed. Thank you for letting me help with the patient's care. DAVID MILAN MD Sep 09, 2021 09:28
[2021-09-09 10:53] VITALS: BP 126/68
--- NOTE | 2021-09-09 14:42 | RAD ---
MRI BRAIN WO, MRI BRAIN WO History:Reason: headache, abnormal CTA / Spl. Instructions: / History: Technique: Multiplanar multisequence MRI of the brain without contrast. 3-D [id number] MR angiogr aphy was performed of the brain. 3-D reconstructions were performed. Determination of any degree of stenosis is based on NASCET criteria. Comparison: Head CT September 08, 2021 Findings: MRI brain: No acute infarct. No intracranial hemorrhage. No mass effect. No hydrocephalus. Brain parenchymal volume loss with frontal predominance. Moderate foci of FLAIR hyperintensities with in the hemispheric white matter, most often due to chronic microvascular ischemia. Chronic small right cerebellar lacunar infarct. Chronic bilateral thalamic lacunar infarcts. Imaged orbits are unremarkable. Complete opacification of the left sphenoid sinus with decreased sign al, may indicate inspissated secretions or fungal colonization. MRV head: Patent superior sagittal, straight, left transverse and sigmoid venous sinuses. No opacification of t he right transverse or sigmoid venous sinuses. Correlate with prior CT the right jugular foramen is n ot formed. No evidence of acute thrombosis. Impression: MRI brain: 1. No acute intracranial abnormality. 2. Chronic right cerebellar and bilateral thalamic lacunar infarcts. 3. Moderate sequelae of chronic microvascular ischemia. 4. Frontal predominant brain parenchymal volume loss. 5. Left sphenoid sinus disease. MRV head: 1. No evidence of dural venous sinus thrombosis. 2. 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 Electronically signed by: Oniel Rosales DO (09/09/2021 2:40 PM) [id number]
[2021-09-09 15:00] VITALS: BP 148/68
--- NOTE | 2021-09-09 15:54 | NUR ---
Patient refused all medications stating that she did not have them this am so her brought them from home and she took her own home medications.
--- NOTE | 2021-09-09 15:56 | NUR ---
SS following for discharge planning. SS reviewed pt chart and discussed with pt RN. Pt is from home and is currently on room air. Neurology following. Discharge plan is currently to home when medically ready for discharge. SS will continue to follow for discharge planning.
[2021-09-09] MEDS ORDERED: INDO50CA15 PO (18:15)
--- NOTE | 2021-09-09 18:45 | NUR ---
Discharge instructions reviewed with patient and her . Both parties voice understanding et deny questions or concerns. Patient discontinued own IV site prior to this nurse coming in the room. Bandage applied to bleeding area.
--- NOTE | 2021-09-09 19:00 | NUR ---
Patient escorted to main entrance via wheelchair et assisted into private vehicle driven by her . All belongings taken with patient at time of discharge.
--- NOTE | 2021-09-09 20:35 | DS ---
DATE OF DISCHARGE: 09/09/2021 PRIMARY DIAGNOSES: Intractable headache. ADDITIONAL DIAGNOSES: Accelerated hypertension, hyperlipidemia, hypertension, history of migraines. CHIEF COMPLAINT AND HISTORY OF PRESENT ILLNESS: This 71-year-old female well known to me from followup in the office, presented with severe headache. She describes it is into her entire head, was definitely different from her migraine. She does have elevated blood pressures in the Emergency Room and there was a question of a sinus thrombosis of the right transverse and sigmoid sinuses on imaging of the neck. Alternatively, it was felt that it might be due to hypoplasia and further imaging suggested she was admitted for pain and blood pressure control. SUMMARY OF STAY: The patient was admitted, morphine really did not do much for the headache. However, dose of Toradol seemed to help quite a bit. Neuro saw her in consult, ordered an MRI of the head, showed no acute abnormalities, showed some chronic right cerebellar and bilateral thalamic lacunar infarct, left frontal predominant brain parenchymal volume loss, left sphenoid sinus disease. 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 He felt she could be dismissed with outpatient followup and this was accomplished. DISPOSITION: The patient is discharged to home. DIET: Regular diet. ACTIVITY: As tolerated, office in 1-2 weeks. DISCHARGE MEDICATIONS: Prehospital medications I am going to send her on some indomethacin 50 one t.i.d. with food p.r.n. headache #30. ROSEMARIE DR: Tessa TID: [id number]
[2021-09-09] MEDS ORDERED: AMITRIPTYLINE HCL 25 MG TABLET. PO SCH (21:00)
[2021-09-09] MEDS ORDERED: SUVOREXANT PO SCH (21:00)
[2021-09-09] MEDS ORDERED: SIMVASTATIN 40 MG TABLET. PO SCH (21:00)
== END 2021-09-09 18:30 | disposition home or self-care (01) | DRG 103 ==
LOC: ER 20:02 → ED HOLD 23:56 → 6 SOUTH 09-09 03:13
PROVIDERS: ADMIT Family Medicine; ATTEND Family Medicine
DX: G44.209 Tension-type headache, unspecified, not intractable (principal); G43.909 Migraine, unspecified, not intractable, without status migrainosus; R79.1 Abnormal coagulation profile; E78.00 Pure hypercholesterolemia, unspecified; E78.5 Hyperlipidemia, unspecified; I10 Essential (primary) hypertension; M26.69 Other specified disorders of temporomandibular joint; M79.7 Fibromyalgia; Z85.828 Personal history of other malignant neoplasm of skin; Z90.710 Acquired absence of both cervix and uterus; K21.9 Gastro-esophageal reflux disease without esophagitis
CPT/HCPCS: 36415; 70450; 70496; 70498; 70544; 70551; 80053; 80307; 81001; 83735; 83880; 84484; 85025; 85610; 85651; 85730; 93005; 96361; 96374; 96375; 96376; J0360; J1100; J1650; J1885; J2270; J2405; Q9967; 99285-25